=== PATIENT | female | born 1975 | race Caucasian/White ===

== ENCOUNTER → 2023-10-18 10:46 | Outpatient (REF) | payer OTHER, SELFPAY | LOC: HWWDC 10:46 | PROVIDERS: ATTENDING PHYSICIAN Family Medicine | DX: Z12.31 Encounter for screening mammogram for malignant neoplasm of breast (principal) | CPT/HCPCS: 77063; 77067 ==

== ENCOUNTER → 2024-10-20 07:44 | Outpatient (REF) | payer OTHER, SELFPAY | LOC: WDC 07:44 | PROVIDERS: ATTENDING PHYSICIAN Family Medicine | DX: Z12.31 Encounter for screening mammogram for malignant neoplasm of breast (principal) | CPT/HCPCS: 77063; 77067 ==